=== PATIENT | male | born 1980 | race Caucasian/White ===

== ENCOUNTER 2020-08-19 11:28 | Inpatient (IN) | payer OTHER ==
[~2020-08-19] VITALS: Ht 180.3 cm; Wt 94.0 kg
[2020-08-19 12:14] LABS: BASOPHILS ABSOLUTE AUTO 0.02 K/mm3 (0.00-0.23); BASOPHILS PERCENT AUTO 0 % (0-2); EOSINOPHILS PERCENT AUTO 0 % (0-6); Hematocrit 43.5 % (37.0-53.0); Hemoglobin 14.9 g/dL (13.5-17.5); IMMATURE GRAN ABSOLUTE AUTO 0.02 K/mm3 (0.00-0.10); IMMATURE GRAN PERCENT AUTO 0 % (0-1); LYMPHOCYTES ABSOLUTE AUTO 0.37 K/mm3 (0.84-5.20); LYMPHOCYTES PERCENT AUTO 8 % (21-46); MONOCYTES ABSOLUTE AUTO 0.38 K/mm3 (0.16-1.47); MONOCYTES PERCENT AUTO 8 % (4-13); Mean Corpuscular HGB 34.5 pg (26.0-34.0); Mean Corpuscular HGB Conc 34.3 g/dL (31.5-36.5); Mean Corpuscular Volume 101 fL (80-100); NEUTROPHILS ABSOLUTE AUTO 3.79 K/mm3 (1.96-9.15); NEUTROPHILS PERCENT AUTO 83 % (41-73); Platelet Count 65 K/mm3 (150-400); RDW Coefficient Variation 14.5 % (11.7-14.2); RDW Standard Deviation 54.1 fL (35.1-46.3); Red Blood Cell Count 4.32 M/mm3 (4.30-5.90); White Blood Cell Count 4.58 K/mm3 (4.00-11.30)
[2020-08-19 12:22] LABS: Alanine Aminotransfer (ALT/SGP 109 U/L (12-78); Albumin, Blood 4.5 g/dL (3.4-5.0); Albumin/Globulin Ratio 1.4 (0.8-1.8); Alk Phos 47 U/L (50-136); Anion Gap 20 mmol/L (6-16); Aspartate Aminotrans (AST/SGOT 112 U/L (12-37); Bilirubin, Total 1.1 mg/dL (0.1-1.0); Blood Urea Nitrogen 9 mg/dL (8-24); Bun/Creatinine Ratio 10.1 (12.0-20.0); CO2, Blood 17 mmol/L (21-32); Chloride, Blood 99 mmol/L (98-108); Creatinine, Blood 0.89 mg/dL (0.60-1.20); Ethanol (Alcohol), Blood, Med <3 mg/dL; Globulin, Blood 3.2 g/dL (2.2-4.0); Glomerular Filtration Rate >60 (60-); Glucose, Blood 132 mg/dL (70-99); Potassium, Blood 3.4 mmol/L (3.5-5.5); Salicylate <1.7 mg/dL (2.8-20.0); Sodium, Blood 136 mmol/L (136-145); Total Protein, Blood 7.7 g/dL (6.4-8.2)
[2020-08-19 12:29] LABS: Acetaminophen, Random <2.0 ug/mL (10.0-30.0)
[2020-08-19] MEDS ORDERED: Naltrexone HCl50 MG PO (12:34)
[2020-08-19] MEDS ORDERED: Magnesium Oxid420 MG PO (12:34)
[2020-08-19] MEDS ORDERED: ELIQUIS5 MG PO (12:34)
[2020-08-19] MEDS ORDERED: METO50 PO (12:36)
[2020-08-19] MEDS ORDERED: OMEP20ER PO (12:36)
[2020-08-19] MEDS ORDERED: MULVITA PO (14:52)
[2020-08-19] MEDS ORDERED: VITAMIN B-1100 M1 PO (14:52)
[2020-08-19 16:00] LABS: Source, Urine Clean Catch
[2020-08-19 16:03] LABS: Appearance, Urine Clear (Clear); Bilirubin, Urine Neg (Neg); Blood, Urine 1+ (Neg); Color, Urine Yellow (P-Yellow); Glucose Qualitative, Urine Neg (Neg); Ketones, Urine 4+ (Neg); Leukocyte Esterase, Urine 1+ (Neg); Nitrite, Urine Neg (Neg); Protein, Urine 3+ (Neg); Specific Gravity, Urine 1.025 (1.003-1.022); Urobilinogen, Urine 1+ (Normal)
[2020-08-19 16:23] LABS: U Amphetamine Screen Not Detected; U Barbituate Screen Not Detected; U Benzodiazapine Screen Not Detected; U Buprenorphine Screen Not Detected; U Cannabinoids Screen DETECTED; U Cocaine Screen Not Detected; U Methadone Screen Not Detected; U Methamphetamine Screen Not Detected; U Opiates Screen Not Detected; U Oxycodone Screen Not Detected; U Phencyclidine Screen Not Detected; U Propoxyphene Screen Not Detected
[2020-08-19 16:37] LABS: Bacteria Few /hpf; Mucus Light (0-Heavy); Squamous Epithelial Cells Few /hpf (Few)
[2020-08-19] MEDS ORDERED: SERT100 PO (17:08)
--- NOTE | 2020-08-19 18:25 | NUR ---
PT ADMITTED TO ROOM 329 FROM ED AT 1635. SETTLED IN TO ROOM AND ORIENTED TO SPACE. ADMISSION COMPLETED AND MEAL GIVEN. DOES HAVE TREMORS BUT NO OTHER WITHDRAWAL SYMPTOMS AT THIS TIME. SEIZURE PADS PLACED ON BED. ENCOURAGED TO USE CALL BUTTON FOR ASSISTANCE UP AT THIS TIME. REPORTS HAVING ISSUES WITH PARANOIA AT TIMES NOT RELATED TO WITHDRAWALS. WILL REPORT CONDITION TO ONCOMING SHIFT.
--- NOTE | 2020-08-20 04:24 | NUR ---
SHIFT SUMMARY PT HAD A MOSTLY UNEVENTFUL NIGHT. TREMORS NOTED BUT NOT SEVERELY. CIWA 3-4. NO PRN MEDICATION NEEDED THIS EVENING. NONE INDICATED AND PT DENIES NEEDING ANY. NO SEIZURE LIKE ACTIVITY THIS EVENING. PT RESTED IN BED AND WATCHED HIS PHONE. APPEARED TO SLEEP OFF AND ON. PT AMBULATED INDEPENDENTLY IN THE ROOM. VITAL SIGNS STABLE. NO COMPLAINTS OF PAIN OR DISCOMFORT. PT EXPRESSES BEING HOPEFUL TO D/C HOME TODAY. WILL CONTINUE TO MONITOR.
[2020-08-20 04:48] LABS: BASOPHILS ABSOLUTE AUTO 0.02 K/mm3 (0.00-0.23); BASOPHILS PERCENT AUTO 1 % (0-2); EOSINOPHILS ABSOLUTE AUTO 0.02 K/mm3 (0.00-0.68); EOSINOPHILS PERCENT AUTO 1 % (0-6); Hematocrit 38.7 % (37.0-53.0); IMMATURE GRAN ABSOLUTE AUTO 0.01 K/mm3 (0.00-0.10); IMMATURE GRAN PERCENT AUTO 0 % (0-1); LYMPHOCYTES ABSOLUTE AUTO 0.89 K/mm3 (0.84-5.20); LYMPHOCYTES PERCENT AUTO 30 % (21-46); MONOCYTES ABSOLUTE AUTO 0.45 K/mm3 (0.16-1.47); MONOCYTES PERCENT AUTO 15 % (4-13); Mean Corpuscular HGB 33.9 pg (26.0-34.0); Mean Corpuscular HGB Conc 33.6 g/dL (31.5-36.5); Mean Corpuscular Volume 101 fL (80-100); Mean Platelet Volume 10.1 fL (9.1-12.4); NEUTROPHILS ABSOLUTE AUTO 1.59 K/mm3 (1.96-9.15); NEUTROPHILS PERCENT AUTO 53 % (41-73); RDW Coefficient Variation 14.1 % (11.7-14.2); RDW Standard Deviation 53.1 fL (35.1-46.3); Red Blood Cell Count 3.83 M/mm3 (4.30-5.90); White Blood Cell Count 2.98 K/mm3 (4.00-11.30)
[2020-08-20 04:54] LABS: Platelet Count 39 K/mm3 (150-400)
[2020-08-20 05:11] LABS: Alanine Aminotransfer (ALT/SGP 78 U/L (12-78); Albumin, Blood 3.6 g/dL (3.4-5.0); Albumin/Globulin Ratio 1.3 (0.8-1.8); Alk Phos 40 U/L (50-136); Anion Gap 8 mmol/L (6-16); Aspartate Aminotrans (AST/SGOT 78 U/L (12-37); Bilirubin, Total 1.1 mg/dL (0.1-1.0); Blood Urea Nitrogen 7 mg/dL (8-24); Bun/Creatinine Ratio 8.1 (12.0-20.0); CO2, Blood 24 mmol/L (21-32); Calcium, Blood 8.1 mg/dL (8.5-10.1); Chloride, Blood 106 mmol/L (98-108); Creatinine, Blood 0.86 mg/dL (0.60-1.20); Globulin, Blood 2.7 g/dL (2.2-4.0); Glomerular Filtration Rate >60 (60-); Glucose, Blood 81 mg/dL (70-99); Potassium, Blood 3.9 mmol/L (3.5-5.5); Sodium, Blood 138 mmol/L (136-145); Total Protein, Blood 6.3 g/dL (6.4-8.2)
[2020-08-20 13:11] LABS: D-Dimer, Quantitative 0.58 mg/L FEU (0.00-0.52); International Normalized Ratio 1.06; Prothrombin Time Results 11.4 Sec (9.7-11.5)
--- NOTE | 2020-08-20 17:55 | NUR ---
SHIFT SUMMARY PT IS AOX4. PT DENIES PAIN, N/V, SOB. PT CIWA SCORES REMAIN LESS THAN 8 THIS SHIFT. TREMORS NOTED IN HANDS. PT IS INDEPENDENT IN ROOM AND AMBULATED THE HALLS X3. PT APPETITE IS GOOD. PT HAD PE CT STUDY THIS DIRK AND BLE DVT ULTRASOUND STUDY. PT'S IN TO VISIT THIS DIRK. PLAN IS FOR POTENTIAL DC TOMORROW. PT IS IN BED, CALL LIGHT IN REACH, BED IN LOW POSITION.
--- NOTE | 2020-08-21 05:16 | NUR ---
COMIC ILLUSTRATOR SUMMARY PT A/O X4. INDEPENDENT IN ROOM. PLEASANT AND COOPERTIVE. DENIES PAIN, NAUSEA, SOB. CIWAS STABLE ALL NIGHT. SLEPT WELL, VSS. NO ACUTE CHANGES. CALL LIGHT WITHIN REACH, WILL CONTINUE TO MONITOR.
[2020-08-21 05:21] LABS: BASOPHILS ABSOLUTE AUTO 0.02 K/mm3 (0.00-0.23); BASOPHILS PERCENT AUTO 1 % (0-2); EOSINOPHILS ABSOLUTE AUTO 0.02 K/mm3 (0.00-0.68); EOSINOPHILS PERCENT AUTO 1 % (0-6); Hematocrit 39.1 % (37.0-53.0); Hemoglobin 13.2 g/dL (13.5-17.5); IMMATURE GRAN ABSOLUTE AUTO 0.01 K/mm3 (0.00-0.10); IMMATURE GRAN PERCENT AUTO 0 % (0-1); LYMPHOCYTES ABSOLUTE AUTO 0.91 K/mm3 (0.84-5.20); LYMPHOCYTES PERCENT AUTO 39 % (21-46); MONOCYTES ABSOLUTE AUTO 0.31 K/mm3 (0.16-1.47); MONOCYTES PERCENT AUTO 13 % (4-13); Mean Corpuscular HGB 34.6 pg (26.0-34.0); Mean Corpuscular HGB Conc 33.8 g/dL (31.5-36.5); Mean Corpuscular Volume 103 fL (80-100); Mean Platelet Volume 10.7 fL (9.1-12.4); NEUTROPHILS ABSOLUTE AUTO 1.04 K/mm3 (1.96-9.15); NEUTROPHILS PERCENT AUTO 45 % (41-73); RDW Coefficient Variation 13.8 % (11.7-14.2); RDW Standard Deviation 53.2 fL (35.1-46.3); Red Blood Cell Count 3.81 M/mm3 (4.30-5.90); White Blood Cell Count 2.31 K/mm3 (4.00-11.30)
[2020-08-21 05:24] LABS: Platelet Count 50 K/mm3 (150-400)
[2020-08-21 05:36] LABS: Albumin, Blood 3.6 g/dL (3.4-5.0); Anion Gap 6 mmol/L (6-16); Blood Urea Nitrogen 6 mg/dL (8-24); Bun/Creatinine Ratio 7.6 (12.0-20.0); CO2, Blood 27 mmol/L (21-32); Calcium, Blood 8.5 mg/dL (8.5-10.1); Chloride, Blood 109 mmol/L (98-108); Creatinine, Blood 0.79 mg/dL (0.60-1.20); Glomerular Filtration Rate >60 (60-); Glucose, Blood 87 mg/dL (70-99); Phosphorus, Blood 4.1 mg/dL (2.5-4.9); Potassium, Blood 3.6 mmol/L (3.5-5.5); Sodium, Blood 142 mmol/L (136-145)
--- NOTE | 2020-08-21 12:41 | NUR ---
PT AWAKE AND INDEPENDENT IN DURING SHIFT REPORT. PT THEN AMBULATING THE HALLS REPEATEDLY, WAITING FOR DR CONNORS TO D/C HIM. DR CONNORS TO , DISCUSSED PLAN OF CARE. PT TO QUIT DRINKING ALL ALCOHOL. D/C INSTRUCTIONS REVIEWED WITH PT AND LATER WITH , WHEN HERE TO TAKE PT HOME. PT TO EAT GREEN VEGTABLES AND FRUIT, WELL HEALTHY DIET. PT AND VERBALIZED UNDERSTANDING. PT DECLINED ASSISTANCE OUT TO CAR. VERY INDEPENDENT. PLEASANT AND CO-OP. DENIED FURTHER NEEDS.
== END 2020-08-21 12:27 | disposition home or self-care (01) | DRG 897 ==
LOC: ER 11:28 → MEDS 11:29
PROVIDERS: Emergency Medicine; Family Medicine; Nurse Practitioner Acute Care; ADMIT Internal Medicine
DX: F10.239 Alcohol dependence with withdrawal, unspecified (principal); Z86.711 Personal history of pulmonary embolism; G40.409 Other generalized epilepsy and epileptic syndromes, not intractable, without status epilepticus; K21.9 Gastro-esophageal reflux disease without esophagitis; Z79.01 Long term (current) use of anticoagulants; Z95.810 Presence of automatic (implantable) cardiac defibrillator; F17.220 Nicotine dependence, chewing tobacco, uncomplicated; E87.6 Hypokalemia; D64.9 Anemia, unspecified; D69.6 Thrombocytopenia, unspecified; Y90.0 Blood alcohol level of less than 20 mg/100 ml
CPT/HCPCS: 36415; 71260; 80053; 80069; 81001; 83735; 85025; 85379; 85610; 87086; 93005; 93010; 93970; 96365; 96366; 96367; 96375; 99285-25; A9270; G0378; G0480; J2060; J3411; J3475; J7030; J7042; Q9967